=== PATIENT | male | born 2000 | race Caucasian/White ===

== ENCOUNTER 2023-10-28 05:36 | Observation (INO) | payer OTHER ==
[~2023-10-28] VITALS: Ht 160 cm; Wt 61.3 kg
[2023-10-28 06:56] LABS: BASO % 0.4 % (0.0-1.0); EOS # 0.1 10^3/uL (0.0-0.5); EOS % 1.3 % (0.0-3.0); HEMATOCRIT 45.4 % (42.0-52.0); HEMOGLOBIN 15.2 g/dl (13.5-17.5); LYMPH # 1.4 10^3/uL (1.5-5.0); LYMPH % 18.2 % (24.0-44.0); MEAN CORPUSCULAR HEMOGLOBIN 29.7 pg (27.0-33.0); MEAN CORPUSCULAR HGB CONC 33.5 g/dl (32.0-36.5); MEAN CORPUSCULAR VOLUME 88.7 fl (80.0-96.0); MONO # 0.6 10^3/uL (0.0-0.8); MONO % 8.1 % (2.0-8.0); NEUTROPHILS # 5.3 10^3/uL (1.5-8.5); NEUTROPHILS % 71.6 % (36.0-66.0); PLATELET COUNT, AUTOMATED 217 10^3/uL (150-450); RED BLOOD COUNT 5.12 10^6/uL (4.30-6.10); WHITE BLOOD COUNT 7.4 10^3/uL (4.0-10.0)
[2023-10-28] MEDS: KETOROLAC 30 MG/ML 1ML VIAL IV ONE (07:25)
[2023-10-28] MEDS: ONDANSETRON 4MG 2ML VIAL IV PRN (07:25)
[2023-10-28] MEDS: NS 1,000 ML IV ONE (08:31)
[2023-10-28] MEDS: MORPHINE 2 MG/ML 1ML VIAL IV ONE (08:41)
[2023-10-28] MEDS: MORPHINE 4 MG/ML 1ML VIAL IV PRN (11:17)
[2023-10-28] MEDS: diphenhydrAMINE 25MG CAP PO ONE (11:29)
[2023-10-28] MEDS ORDERED: KETOROLAC 30 MG/ML 1ML VIAL IV PRN (12:00)
[2023-10-28] MEDS ORDERED: MOM 30ML SUSPENSION UDC PO PRN (12:00)
[2023-10-28] MEDS ORDERED: HOME MED LIST COMPLETE! XX SCH (12:15)
[2023-10-28 13:21] VITALS: BP 113/78; TEMP 97.5; O2SAT 99
[2023-10-28] MEDS: KETOROLAC 30 MG/ML 1ML VIAL IV SCH (13:31)
[2023-10-28] MEDS: ACETAMINOPHEN TAB 650MG DOSE (2X325MG) PO PRN (13:32)
[2023-10-28] MEDS: oxyCODONE 5MG TAB PO PRN (13:33)
[2023-10-28] MEDS: DOCUSATE SODIUM 100MG CAPSULE PO SCH (13:38)
[2023-10-28 19:44] VITALS: BP 113/64; TEMP 97.5; O2SAT 96
[2023-10-29 05:49] VITALS: BP 111/64; TEMP 97.7; O2SAT 98
[2023-10-29 06:03] LABS: HEMATOCRIT 38.1 % (42.0-52.0); HEMOGLOBIN 13.3 g/dl (13.5-17.5); MEAN CORPUSCULAR HEMOGLOBIN 30.2 pg (27.0-33.0); MEAN CORPUSCULAR HGB CONC 34.9 g/dl (32.0-36.5); MEAN CORPUSCULAR VOLUME 86.6 fl (80.0-96.0); PLATELET COUNT, AUTOMATED 156 10^3/uL (150-450); WHITE BLOOD COUNT 8.3 10^3/uL (4.0-10.0)
[2023-10-29 06:25] LABS: BLOOD UREA NITROGEN 15 MG/DL (9-23); CALCIUM LEVEL 8.5 MG/DL (8.5-10.1); CARBON DIOXIDE LEVEL 25 MMOL/L (20-31); CHLORIDE LEVEL 106 MMOL/L (98-107); CREATININE FOR GFR 1.48 MG/DL (0.70-1.30); GLOMERULAR FILTRATION RATE > 60.0 (>60); GLUCOSE, FASTING 92 MG/DL (60-100); SODIUM LEVEL 138 MMOL/L (136-145)
[2023-10-29] MEDS ORDERED: oxyCODONE 5MG TAB PO PRN ×2 (07:25→11:10)
[2023-10-29] MEDS: LR 1,000 ML IV ONE (08:50)
[2023-10-29] MEDS: ACETAMINOPHEN TAB 650MG DOSE (2X325MG) PO SCH (08:51)
[2023-10-29] MEDS ORDERED: LIDOCAINE 2% 100MG/5ML SDV (FOR ANES.) As Ordered ONE (11:09)
[2023-10-29] MEDS ORDERED: fentaNYL 100 MCG/2 ML INJECTION As Ordered ONE (11:09)
[2023-10-29] MEDS ORDERED: propofoL 200 MG/20 ML VIAL As Ordered ONE (11:09)
[2023-10-29] MEDS ORDERED: MIDAZOLAM INJ 2MG/2ML VIAL As Ordered ONE (11:09)
[2023-10-29] MEDS ORDERED: ONDANSETRON 4MG 2ML VIAL IV PRN (11:10)
[2023-10-29] MEDS ORDERED: fentaNYL 100 MCG/2 ML INJECTION IV PRN (11:10)
[2023-10-29] MEDS ORDERED: LR 1,000 ML IV SCH (11:10)
[2023-10-29] MEDS: ISOVUE-300 61% 100ML VIAL As Ordered ONE (11:53)
[2023-10-29] MEDS: LIDOCAINE 2% 5ML JELLY UROJET As Ordered ONE (12:25)
[2023-10-29] MEDS: ceFAZolin 1GM VIAL As Ordered ONE (12:26)
[2023-10-29] MEDS ORDERED: ONDANSETRON 4MG 2ML VIAL As Ordered ONE (12:26)
[2023-10-29 13:40] VITALS: BP 118/82; TEMP 97.3; O2SAT 97
[2023-10-29] MEDS ORDERED: ACET-897 PO (14:07)
[2023-10-29] MEDS ORDERED: OXYC1TAB23 PO (14:07)
[2023-10-29 14:10] VITALS: BP 130/82; TEMP 97.2; O2SAT 98
[2023-10-29 14:40] VITALS: BP 131/80; TEMP 97; O2SAT 94
== END 2023-10-29 16:09 | disposition home or self-care (01) ==
LOC: M ED 05:36 → M ED INP 11:59 → M MSPAV 13:21
PROVIDERS: ADMIT Student in an Organized Health Care Education/Training Program; ATTEND Student in an Organized Health Care Education/Training Program
DX: N20.1 Calculus of ureter (principal); N13.30 Unspecified hydronephrosis; N17.9 Acute kidney failure, unspecified; R31.9 Hematuria, unspecified; Z87.442 Personal history of urinary calculi; F17.200 Nicotine dependence, unspecified, uncomplicated; Z98.890 Other specified postprocedural states; Z80.3 Family history of malignant neoplasm of breast; Z80.0 Family history of malignant neoplasm of digestive organs; Z87.440 Personal history of urinary (tract) infections
CPT/HCPCS: 36415; 52332; 74176; 74420; 80047; 80048; 81001; 85025; 85027; 96361; 96374; 96375; 96376; 99284; C1769; C2617; J0690; J1100; J1885; J2250; J2405; J3010; Q9967

== ENCOUNTER → 2023-11-11 | Outpatient (REF) | payer OTHER ==
[~2023-11-11] MED LIST: ACET-897 PO; OXYC1TAB23 PO
== END ==
LOC: M LABSMT 08:14
PROVIDERS: ATTEND Urology
DX: N20.0 Calculus of kidney (principal)

== ENCOUNTER 2023-12-26 09:06 | Day surgery (SDC) | payer OTHER ==
[~2023-12-26] VITALS: Ht 160 cm; Wt 58.5 kg
[~2023-12-26 09:06] MED LIST changes: +UNRESOLVED CLARIFICATION ENTRY XX SCH
[2023-12-26] MEDS ORDERED: fentaNYL 100 MCG/2 ML INJECTION As Ordered ONE (09:29)
[2023-12-26] MEDS ORDERED: propofoL 200 MG/20 ML VIAL As Ordered ONE (09:29)
[2023-12-26] MEDS ORDERED: MIDAZOLAM INJ 2MG/2ML VIAL As Ordered ONE (09:29)
[2023-12-26] MEDS ORDERED: ceFAZolin SOD 2 GM in IV 1 EA IV ONE (09:30)
[2023-12-26] MEDS ORDERED: LIDOCAINE 2% 100MG/5ML SDV (FOR ANES.) As Ordered ONE (09:32)
[2023-12-26] MEDS ORDERED: ONDANSETRON 4MG 2ML VIAL As Ordered ONE (09:35)
[2023-12-26] MEDS: LR 1,000 ML IV SCH (09:44)
[2023-12-26] MEDS ORDERED: ACETAMINOPHEN 1000MG 100ML IV BAG As Ordered ONE (10:31)
[2023-12-26] MEDS ORDERED: fentaNYL 100 MCG/2 ML INJECTION IV PRN (11:20)
[2023-12-26] MEDS ORDERED: LR 1,000 ML IV SCH (11:20)
[2023-12-26] MEDS ORDERED: HYDROMORPHONE HCL 0.5 MG/ 0.5 ML SYRINGE IV PRN (11:20)
[2023-12-26] MEDS ORDERED: ONDANSETRON 4MG 2ML VIAL IV PRN (11:20)
[2023-12-26] MEDS ORDERED: oxyCODONE 5MG TAB PO PRN (11:20)
[2023-12-26] MEDS ORDERED: PYRI1TAB5 PO (11:21)
[2023-12-26] MEDS ORDERED: MACR100C43 PO (11:21)
[2023-12-26] MEDS ORDERED: OXYB5TAB14 PO (11:21)
[2023-12-26 12:40] VITALS: BP 130/70; TEMP 97; O2SAT 100
== END 2023-12-26 12:40 | disposition home or self-care (01) ==
LOC: M SDC 09:06
PROVIDERS: ATTEND Urology
DX: N20.1 Calculus of ureter (principal); F17.290 Nicotine dependence, other tobacco product, uncomplicated
CPT/HCPCS: 52356; 76000; 82365; C1769; C1894; C2617; J0131; J1100; J2250; J2405; J3010